=== PATIENT | male | born 1960 | race African-American/Black ===

== ENCOUNTER 2017-09-26 10:06 | Observation (INO) ==
[2017-09-26] MEDS ORDERED: METOPROLOL 5mg/5ml INJECTION IVP ONE (10:20)
[2017-09-26] MEDS ORDERED: ASPIRIN 81 MG CHEWABLE TABLET PO ONE (10:20)
[2017-09-26] MEDS: NITROGLYCERIN 0.4 MG SUBLINGUAL TABLET SL PRN ×3 (10:28→10:44)
--- NOTE | 2017-09-26 10:31 | Emergency Department Report ---
Chest Pain HPI - General Chief Complaint: Chest Pain <Karrie Trejo 09/26/17 10:34> Stated Complaint: HIGH BP, HEADACHE <Karrie Trejo 09/26/17 10:34> Source: patient <Karrie Trejo 09/26/17 10:34> Mode of arrival: EMS <Karrie Trejo 09/26/17 10:34> Limitations: no limitations <Karrie Trejo 09/26/17 10:34> - History of Present Illness HPI narrative: PT presents per EMS from [facility] with a complaint of chest pain, SOA, HTN, and headache. Pt has had intermittent chest pain for about a week. Which started just before he went to [facility] to detox from cocaine. He was in detox for three days and is now at [facility] where he states he woke with a headache, took his medication, and had an episode of nausea and vomiting. Headache continues. He rates chest pain as 7/10 and is having SOA. He denies cough, fever, pain radiation or diaphoresis. He has a history of CAD, CKD, asthma, and cocaine abuse. He sees Dr Foote. He has been unable to have a heart cath 2/2 kidney function. Pt also states he has not been putting out much urine <Karrie Trejo 09/26/17 10:34> MD complaint: chest pain <Karrie Trejo 09/26/17 10:34> Onset (ago): day(s) <Karrie Trejo 09/26/17 10:34> Duration: intermittent <Karrie Trejo 09/26/17 10:34> Onset: awoke with symptoms <Karrie Trejo 09/26/17 10:34> Pain location: substernal <Karrie Trejo 09/26/17 10:34> Severity: moderate <Karrie Trejo 09/26/17 10:34> Severity scale (1-10): 7 <Karrie Trejo 09/26/17 10:34> Pain radiation: none <Karrie Trejo 09/26/17 10:34> - Related Data Home Medications Medication Instructions Recorded Confirmed Atorvastatin Calcium 80 mg PO HS #0 tab 11/25/15 09/26/17 Clopidogrel Bisulfate [Clopidogrel] 75 mg PO DAILY #0 tab 11/25/15 09/26/17 Albuterol Sulfate [Proair Hfa] 1 puff INH Q6H PRN 09/26/17 09/26/17 Amlodipine [Norvasc] 10 mg PO DAILY 09/26/17 09/26/17 Isosorbide Mononitrate ER [Imdur] 60 mg PO DAILY 09/26/17 09/26/17 Torsemide [Demadex] 20 mg PO DAILY 09/26/17 09/26/17 <Karrie Trejo 09/26/17 10:34> Allergies Allergy/AdvReac Type Severity Reaction Status Date / Time No Known Allergies Allergy Unverified 11/24/15 23:29 <Karrie Trejo 09/26/17 10:34> Review of Systems All systems: reviewed and negative except as stated <Karrie Trejo 10:34> Constitutional: Reports: as per HPI <Karrie Trejo 09/26/17 10:34> Cardiovascular: Reports: as per HPI <Karrie Trejo 09/26/17 10:34> Respiratory: Reports: as per HPI <Karrie Trejo 09/26/17 10:34> Gastrointestinal: Reports: as per HPI <Karrie Trejo 09/26/17 10:34> Neurological: Reports: as per HPI <Karrie Trejo 09/26/17 10:34> [facility] Patient Stated Medical History Cerebrovascular Accident Yes Dental Problems Yes Congestive Heart Failure Yes Coronary Artery Disease Yes Hypertension Yes Hx Renal Disease Yes Substance Use Disorder Yes: Cocaine <Winston Bradley - 09/26/17 13:38> Physical Exam - Limitations Limitations: no limitations <Karrie Trejo 09/26/17 10:34> - General General appearance: alert, anxious <Karrie Trejo 09/26/17 10:34> - Normal Exams: Head:: Normocephalic without trauma <Karrie Trejo 09/26/17 10:34> Eyes:: Pupils are PERRLA w/ EOMI <Karrie Trejo 09/26/17 10:34> Neck:: Full range of motion <Karrie Trejo 09/26/17 10:34> Chest/Respirations:: Clear all teixeira, with good airflow, and symmetry bilaterally <Karrie Trejo 09/26/17 10:34> Cardiovascular:: Regular rate and rhythm, without murmur or gallop, Pulses 2+ all extremities, capillary refill, <2 seconds all extremities <Karrie Trejo 09/26/17 10:34> Abdomen:: Bowel sounds positive, soft, non-tender, non-distended <Karrie Trejo 09/26/17 10:34> Musculoskeletal:: No tenderness, or deformity noted, good range of motion, all extremities <Karrie Trejo 09/26/17 10:34> Integumentary:: No rashes <Karrie Trejo 09/26/17 10:34> Neurological:: Patient is alert, and oriented, cranial nerves, motor/sensory/ cerebellar, exams w/o gross deficits, to observation <Karrie Trejo 10:34> Psychiatric:: Patient exhibits, appropriate attention, emotion and affect < Karrie Trejo 09/26/17 10:34> Course Vital Signs Temperature 97.6 F 09/26/17 10:06 Pulse Rate 78 09/26/17 10:06 Respiratory Rate 20 09/26/17 10:06 Blood Pressure 177/105 H 09/26/17 10:06 Pulse Oximetry 97 09/26/17 10:06 Temperature 97.6 F 09/26/17 10:10 Pulse Rate 58 L 09/26/17 12:15 Respiratory Rate 22 09/26/17 12:15 Blood Pressure 138/85 09/26/17 11:15 Pulse Oximetry 99 09/26/17 12:15 <Winston Bradley - 09/26/17 13:37> Vital Signs Blood Pressure 177/105 H 09/26/17 10:08 Temperature 97.6 F 09/26/17 10:10 Pulse Rate 78 09/26/17 10:10 Respiratory Rate 20 09/26/17 10:10 Blood Pressure 177/105 H 09/26/17 10:08 Pulse Oximetry 97 09/26/17 10:10 <Karrie Trejo Gerson - 09/26/17 10:34> Chest Pain - MDM Narrative Medical decision making narrative: PT reports some improvement in CP after NTG however even though improved BP remains elevated and headache continues. Pt given Tylenol for headache CT head performed wit no acute findings Dr Langley aware of pt complaint and findings. He would like hospitalist notified 2/2 comorbidities and to determine if pt needs transfer Dr Oliveira notified and will admit. All findings and plan discussed with pt who voices understanding <Karrie Trejo Berny 09/26/17 14:28> - Differential Diagnosis Likely: stable angina, unstable angina pectoris, atypical chest pain, st elevation myocardial infarction, costochondritis, chest pain (asthma exacerbation, hypertensive urgency, CKD) <Karrie Trejo Berny 09/26/17 10:34> - Lab Data Attestation: I reviewed the patient's lab results. <NeilNavaKarrietin Arrieta 09/26 14:28> Result diagrams: 09/26/17 10:15 09/26/17 10:15 <NeilKarrietin Arrieta 09/26/17 10:34> Lab Results 09/26/17 09/26/17 09/26/17 Range/Units 10:15 10:15 10:30 WBC 5.6 (4.5-11.0) T/MM3 RBC 5.80 (4.50-5.90) M/MM3 Hgb 15.5 (13.5-17.5) GM/DL Hct 46.5 (41-53) % MCV 80.2 (80-100) UM3 MCH 26.7 (26-34) UUG MCHC 33.3 (31-37) GM/DL RDW Std Deviation 50.1 (36.9-50.2) FL Plt Count 207 (130-400) T/MM3 MPV 11.9 (9.4-12.4) UM3 Immature Gran % (Auto) 0.5 (0.0-0.5) % Neut % (Auto) 48.7 (33-66) % Lymph % (Auto) 39.5 (23-45) % Surry % (Auto) 6.8 (0-9.0) % Eos % (Auto) 4.3 H (0-4) % Baso % (Auto) 0.2 (0-2) % Neut # (Auto) 2.7 (1.8-7.7) T/MM3 Lymph # (Auto) 2.2 (1-4.8) T/MM3 [place]ry # (Auto) 0.4 (0-0.8) T/MM3 Eos # (Auto) 0.2 (0-0.5) T/MM3 Baso # (Auto) 0.0 (0-0.2) T/MM3 Abs Immat Gran (auto) 0.03 (0.00-0.03) T/MM3 D-Dimer (0-230) NG/ML Turbidity < 20 (0-20) Sodium 144 (136-146) MEQ/L Potassium 4.8 (3.6-5) MEQ/L Chloride 102 (98-107) MEQ/L Carbon Dioxide 28 (22-30) MEQ/L Anion Gap 14 (5-15) meq/L BUN 40.0 H (9-20) MG/DL Creatinine 3.6 H (0.8-1.5) mg/dL GFR Calculation 18 BUN/Creatinine Ratio 11 (6-26) RATIO Glucose 129 H (75-110) MG/DL Calculated Osmolality 289 H (261-280) MOSM/KG Calcium 10.0 (8.4-10.2) MG/DL Icterus Index < 2 (0-7) Troponin I 0.022 (0-0.12) ng/ml NT-Pro-B Natriuret Pep 189 H (0-175) pg/mL Specimen Hemolysis 21 (0-25) Ur Collection Type Urine Color (YELLOW) Urine Clarity Urine pH (5.0-8.0) Ur Specific Colman (1.015-1.025) Urine Protein (NEGATIVE) Urine Glucose (UA) (NEGATIVE) Urine Ketones (NEGATIVE) Urine Occult Blood (NEGATIVE) Urine Nitrate (NEGATIVE) Urine Bilirubin (NEGATIVE) Urine Urobilinogen (NORMAL) EU/DL Ur Leukocyte Esterase (NEGATIVE) Urine RBC (0-3) /HPF Urine WBC (0-5) /HPF Ur Squamous Epith Cells Urine Bacteria (NEGATIVE) Hyaline Casts /LPF Ur Culture Indicated? Specimen Comment Lab to recollect Tests Not Done Ddimer Reason Tests Not Done Clotted specimen 09/26/17 09/26/17 Range/Units 10:43 11:08 WBC (4.5-11.0) T/MM3 RBC (4.50-5.90) M/MM3 Hgb (13.5-17.5) GM/DL Hct (41-53) % MCV (80-100) UM3 MCH (26-34) UUG MCHC (31-37) GM/DL RDW Std Deviation (36.9-50.2) FL Plt Count (130-400) T/MM3 MPV (9.4-12.4) UM3 Immature Gran % (Auto) (0.0-0.5) % Neut % (Auto) (33-66) % Lymph % (Auto) (23-45) % Surry % (Auto) (0-9.0) % Eos % (Auto) (0-4) % Baso % (Auto) (0-2) % Neut # (Auto) (1.8-7.7) T/MM3 Lymph # (Auto) (1-4.8) T/MM3 Surry # (Auto) (0-0.8) T/MM3 Eos # (Auto) (0-0.5) T/MM3 Baso # (Auto) (0-0.2) T/MM3 Abs Immat Gran (auto) (0.00-0.03) T/MM3 D-Dimer < 150 (0-230) NG/ML Turbidity (0-20) Sodium (136-146) MEQ/L Potassium (3.6-5) MEQ/L Chloride (98-107) MEQ/L Carbon Dioxide (22-30) MEQ/L Anion Gap (5-15) meq/L BUN (9-20) MG/DL Creatinine (0.8-1.5) mg/dL GFR Calculation BUN/Creatinine Ratio (6-26) RATIO Glucose (75-110) MG/DL Calculated Osmolality (261-280) MOSM/KG Calcium (8.4-10.2) MG/DL Icterus Index (0-7) Troponin I (0-0.12) ng/ml NT-Pro-B Natriuret Pep (0-175) pg/mL Specimen Hemolysis (0-25) Ur Collection Type Urine, void-cc/notcc Urine Color Yellow (YELLOW) Urine Clarity Clear Urine pH 5.5 (5.0-8.0) Ur Specific Colman 1.010 L (1.015-1.025) Urine Protein 1+ A (NEGATIVE) Urine Glucose (UA) Negative (NEGATIVE) Urine Ketones Negative (NEGATIVE) Urine Occult Blood Trace-lysed (NEGATIVE) Urine Nitrate Negative (NEGATIVE) Urine Bilirubin Negative (NEGATIVE) Urine Urobilinogen 0.2 (NORMAL) EU/DL Ur Leukocyte Esterase Negative (NEGATIVE) Urine RBC 0-1 (0-3) /HPF Urine WBC None seen (0-5) /HPF Ur Squamous Epith Cells None seen Urine Bacteria None seen (NEGATIVE) Hyaline Casts 0-1 /LPF Ur Culture Indicated? Cult not indicated Specimen Comment Tests Not Done Reason Tests Not Done <Winston Bradley 09/26/17 13:38> - Radiology Data Attestation: I reviewed the patient's radiology results. <Karrie Trejo 09/26/17 14:28> - EKG Data EKG #1 EKG attestation: Yes: I reviewed and interpreted this EKG. <Karrie Trejo 09/26/17 14:28> EKG results narrative: Sinus rhythm. 83 bpm. No STEMI. No change from 2016. <Winston Bradley 09/26/17 13:38> Disposition Clinical Impression: Chest pain Qualifiers: Chest pain type: unspecified Qualified Code(s): R07.9 - Chest pain, unspecified Headache Qualifiers: Headache type: unspecified Headache chronicity pattern: acute headache Intractability: not intractable Qualified Code(s): R51 - Headache <Karrie Trejo 09/26/17 14:28> Disposition: 02 To [facility] [place] <Karrie Trejo 09/26/17 14:28> Condition: Stable <Karrie Trejo 09/26/17 14:28> Prescriptions: No Action Clopidogrel Bisulfate [Clopidogrel] 75 mg PO DAILY #0 tab Amlodipine [Norvasc] 10 mg PO DAILY Isosorbide Mononitrate ER [Imdur] 60 mg PO DAILY Torsemide [Demadex] 20 mg PO DAILY Atorvastatin Calcium 80 mg PO HS #0 tab Albuterol Sulfate [Proair Hfa] 1 puff INH Q6H PRN PRN Reason: Shortness Of Air/Wheezing <Karrie rTejo 09/26/17 10: 34> Time of Disposition: 14:28 <Karrie Trejo 09/26/17 14:28> - Seen By: midlevel <Karrie Trejo 09/26/17 14:28>
--- NOTE | 2017-09-26 10:32 | XRay Report ---
Indication: CHEST PAIN starting this morning PROCEDURE: XR chest 1V: Encounter: Initial Comparison: November 24, 2015 FINDINGS: The lungs are clear. There is no abnormal airspace opacity, pleural effusion or pneumothorax identified. The heart size, pulmonary vasculature and mediastinum are within normal limits. Mild dextroscoliosis IMPRESSION: No acute cardiopulmonary abnormality. .
[2017-09-26] MEDS: SALINE FLUSH 10ml SYRINGE IVF PRN (10:47)
[2017-09-26] MEDS: ACETAMINOPHEN 500 MG TABLET PO PRN ×2 (11:12→19:51)
[2017-09-26] MEDS ORDERED: PROMETHAZINE 25 MG INJECTION IVP ONE (13:51)
[2017-09-26] MEDS ORDERED: METOCLOPRAMIDE 10mg/2ml INJECTION IVP PRN (14:32)
[2017-09-26] MEDS ORDERED: ACETAMINOPHEN 325 MG TABLET PO PRN (14:32)
[2017-09-26] MEDS ORDERED: NITROGLYCERIN 0.4 MG SUBLINGUAL TABLET SL PRN (14:32)
[2017-09-26 14:33] VITALS: BMI 21.5
--- NOTE | 2017-09-26 14:43 | History & Physical Report ---
History of Present Illness Date: 09/27/17 Chief complaint: Chest Pain HPI: Is a 57-year-old male who is transferred over from the [facility] drug rehab facility for central sternal chest pain that has been on again off again since . He is not associated nausea with vomiting with this. He purports that he is been clean for the last week having spent 3 days in acute detox and an additional 4 at the [facility] facility since . He is actually more concerned about the occipital headache he is having is only slightly improved in the emergency room with the Tylenol that he's been given. He arrives with a form addressing his residency in the substance abuse disorder program at [facility] with the phone numbers [phone] as well as the fax [phone]. Review of Systems - Constitutional Constitutional: Present: as per HPI, headache(s) - EENMT Eyes: Absent: blurry vision, change in vision Mouth/Throat: Absent: pain - Cardiovascular Cardiovascular: Present: chest pain, dyspnea on exertion. Absent: palpitations , syncope, edema - Respiratory Respiratory: Absent: cough, dyspnea, pain on inspiration - Gastrointestinal Gastrointestinal: Present: nausea, vomiting - Neurological Neurological: Absent: abnormal movements, abnormal speech, focal weakness, numbness Past Medical History Medical History: Medical History (Last Updated 09/26/17 @ 14:47 by Andres Hart MD) CHF (congestive heart failure) CVA (cerebral vascular accident) Coronary artery disease Renal disease Family History: History of renal failure and cardiac disease within the family Family History: As Above - Social History Smoking status: Former smoker Substance use type: crack/cocaine Alcohol intake frequency: does not drink Current occupational status: other Medications Home Medications Medication Instructions Recorded Confirmed Type Atorvastatin Calcium 80 mg PO HS #0 tab 11/25/15 09/26/17 History Clopidogrel Bisulfate [Clopidogrel] 75 mg PO DAILY #0 tab 11/25/15 09/26/17 History Albuterol Sulfate [Proair Hfa] 1 puff INH Q6H PRN 09/26/17 09/26/17 History Amlodipine [Norvasc] 10 mg PO DAILY 09/26/17 09/26/17 History Isosorbide Mononitrate ER [Imdur] 60 mg PO DAILY 09/26/17 09/26/17 History Torsemide [Demadex] 20 mg PO DAILY 09/26/17 09/26/17 History Allergies Allergy/AdvReac Type Severity Reaction Status Date / Time No Known Allergies Allergy Verified 09/26/17 14:38 Exam Vital Signs: Temperature 97.6 F 09/26/17 10:10 Pulse Rate 66 09/26/17 14:15 Respiratory Rate 16 09/26/17 14:15 Blood Pressure 138/85 09/26/17 11:15 Pulse Oximetry 96 09/26/17 13:35 Telemetry Rhythm: Sinus Rhythm Height/Weight/BMI: Height 5 ft 1 in Weight 51.8 kg Body Mass Index 21.5 Comments: No acute changes when compared to EKG of 2016, chronic very minimal increase in ST segment on V1-V3 - Constitutional Present: well nourished, well developed - Routine HEENT Exam Eye: Present: EOMI ENT: Present: mucous membranes moist, dentition normal - Routine Respiratory Exam Present: CTA bilaterally. Absent: wheezes - Routine Cardiovascular Exam Present: RRR. Absent: murmur - Routine Abdominal Exam Present: soft, normoactive bowel sounds, non distended. Absent: tenderness - Routine Extremities Exam Present: normal capillary refill - Routine Skin Exam Present: dry, warm - Routine Neurological Exam Present: alert, oriented X3, CN II-XII intact - Routine Psychiatric Exam Present: normal affect Results - Labs CBC & Chem 7: 09/26/17 10:15 09/26/17 10:15 Assessment and Plan (1) Chest pain Current visit: Yes Status: Acute (2) Chronic kidney disease, stage 4 (severe) Current visit: Yes Status: Chronic (3) Headache Current visit: Yes Status: Acute (4) Cocaine abuse with cocaine-induced disorder Current visit: Yes Status: Chronic (5) Cocaine dependence with withdrawal Current visit: Yes Status: Acute Assessment and Plan: Mr. Juarez is a 57-year-old man with recent history of cocaine abuse. He is given a urine sample and we're waiting the results of the urine drug screen. Generally the screen would indicate whether or not there is been used within the last 72 hours as it is quickly metabolized beyond detection. Dr. Viveros in cardiology has seen and recommended observation based on patient's history. His chest pain has not had a positive troponin but it has been intermittent. We'll run [place] troponins and EKGs. Patient will be maintained on aspirin and sublingual nitroglycerin as needed The patient's actual priorities his headache which is probably secondary to the hypertensive urgency that he was having. Blood pressure is improved but he is still having some pain. CT has been preliminarily read as negative as he has no focal deficits do not see any value in magnetic resonance imaging at this time. DISPOSITION: observation status ADDENDUM: is supplying additional information stating that he has only been admitted to detox since the . His urine sample did not make it down to be processed in the lab as yet but it is far more likely to be positive at this point. For several hours now patient has been unwilling to submit a urine sample for urine drug screen. He has talked to nursing staff about desire to be transferred but without medical cause. I've told the staff if he wishes to leave against medical advice to not deter him Resuscitation Status: Full Code - Physician Narrative Physician: other Narrative: Date: 09/26/17 Time: 1439 Hospital Course Summary Disclaimer: The visit summary below is not to be considered part of the above Progress Note.
[2017-09-26] MEDS ORDERED: ALBUTEROL 2.5mg/3ml (0.083%) NEB AEROSOL PRN (18:54)
[2017-09-26] MEDS ORDERED: ATORVASTATIN 40 MG TABLET PO SCH (21:00)
--- NOTE | 2017-09-27 07:00 | CT Scan Report ---
Indication: headache, HX CVA CT head/brain wo con: Comparison: None Technique: Nonenhanced axial imaging with brain and bone window evaluation and dose reduction imaging technology Findings: Patient showed no acute intracranial abnormality. No suggestion of hemorrhage, midline shift or mass is noted. Some soft tissue swelling is seen over the right for head. Questionable previous injury to the medial wall of the left orbit. Mastoid air cells are clear. No bony skull fractures are identified. Impression: 1. No acute intracranial findings. 2. Probable chronic findings about the medial wall of the left orbit 3. Findings communicated to the ordering ER clinician by the V rad service on a callback basis. .
[2017-09-27 07:52] VITALS: RESP 12; TEMP 98.1
[2017-09-27] MEDS ORDERED: ISOSORBIDE MONONITRATE ER 60 MG TABLET PO SCH (09:00)
[2017-09-27] MEDS ORDERED: CLOPIDOGREL 75 MG TABLET PO SCH (09:00)
[2017-09-27] MEDS ORDERED: ENOXAPARIN 40 MG/0.4 ML INJECTION SQ SCH (09:00)
[2017-09-27] MEDS ORDERED: AMLODIPINE 10 MG TABLET PO SCH (09:00)
[2017-09-27] MEDS ORDERED: TORSEMIDE 20 MG TABLET PO SCH (09:00)
[2017-09-27 10:18] VITALS: BP 120/65; PULSE 57; O2SAT 99
[2017-09-27] MEDS: SALINE FLUSH 10ml SYRINGE IVF PRN (10:20)
[2017-09-27] MEDS: ACETAMINOPHEN 500 MG TABLET PO PRN (10:27)
--- NOTE | 2017-09-27 10:37 | Discharge Summary ---
Discharge Information Date of admission: 09/26/17 14:01 Anticipated date of discharge: 09/27/17 Attending Physician: Andres Hart MD Primary care physician: Primary Care, You Choose - Discharge Diagnosis (1) Chest pain Status: Acute (2) Chronic kidney disease, stage 4 (severe) Status: Chronic (3) Headache Status: Acute (4) Cocaine abuse with cocaine-induced disorder Status: Chronic (5) Cocaine dependence with withdrawal Status: Acute - Laboratory Labs: 09/26/17 10:15 09/26/17 10:15 History of Present Illness HPI: Is a 57-year-old male who is transferred over from the [facility] drug rehab facility for central sternal chest pain that has been on again off again since . He is not associated nausea with vomiting with this. He purports that he is been clean for the last week having spent 3 days in acute detox and an additional 4 at the [facility] facility since . He is actually more concerned about the occipital headache he is having is only slightly improved in the emergency room with the Tylenol that he's been given. He arrives with a form addressing his residency in the substance abuse disorder program at [facility] with the phone numbers [phone] as well as the fax [phone]. Objective Vital signs: Temperature 98.1 F 09/27/17 07:52 Pulse Rate 57 L 09/27/17 10:17 Respiratory Rate 12 09/27/17 07:52 Blood Pressure 120/65 09/27/17 10:17 Pulse Oximetry 99 09/27/17 10:17 Rhythm: Normal Sinus Rhythm Height/Weight/BMI: Height 5 ft 1 in Weight 53.3 kg Body Mass Index 21.5 - Constitutional Present: well nourished, well developed - Routine HEENT Exam Eye: Present: EOMI ENT: Present: mucous membranes moist, dentition normal - Routine Respiratory Exam Present: CTA bilaterally. Absent: wheezes - Routine Cardiovascular Exam Present: RRR. Absent: murmur - Routine Abdominal Exam Present: soft, normoactive bowel sounds, non distended. Absent: tenderness - Routine Extremities Exam Present: normal capillary refill - Routine Skin Exam Present: dry, warm - Routine Neurological Exam Present: alert, oriented X3, CN II-XII intact - Routine Lymphatic Exam Lymphatic: Absent: adenopathy - Routine Psychiatric Exam Present: anxious. Absent: good insight, good judgment Hospital Course This is a general summary of the patient's hospital course. For more details refer to the complete medical record. Hospital course: This is a 57-year-old man who had been sent over from [facility] substance rehabilitation program for chest pain that had been going on for approximately 72 hours off and on. The patient had been seen by ruby [employer] rails software developer Dr. Kent and he had recommended the patient be put under observation to rule out acute coronary syndrome based upon the patient's past history of coronary artery disease and cocaine abuse. (Patient has previously been seen by Dr. Foote) patient received serial troponins and cardiac enzymes which were all negative. The patient stated that he had been clean of cocaine for one weeks time when he had been initially admitted, however the drug toxicity that followed showed him to be positive which would indicate use within 72 hours, and his admitted that his last use had been on September 22 prior to going into the program at [facility]. His chief complaint remains his headache however the patient is still withdrawing from cocaine. His CT was negative and he never showed any signs of focal deficits. As he is in a drug rehab program, he was accompanied by a letter from the program requesting abstinence from abusive drugs, this would include opiates and barbiturates in treatment of the headache. He was given Phenergan, fluid boluses and Tylenol which had some minimal temporary improvement. The patient's renal function is too poor to be using NSAIDs so injections such as Toradol or medications such as meloxicam were avoided. He is to go back to his drug rehab program to continue cleaning up Time spent with patient: 25 - 35 minutes Discharge Plan - Discharge Disposition Discharge Date: 09/27/17 Disposition: [address] [facility] Home/Facility *Condition: Stable Reason For Visit (Visit label in EMR): chest pain r/o ACS - Discharge Medications *Discharge Medications: Continue Clopidogrel Bisulfate [Clopidogrel] 75 mg PO DAILY #0 tab Amlodipine [Norvasc] 10 mg PO DAILY Isosorbide Mononitrate ER [Imdur] 60 mg PO DAILY Torsemide [Demadex] 20 mg PO DAILY Atorvastatin Calcium 80 mg PO HS #0 tab Albuterol Sulfate [Proair Hfa] 1 puff INH Q6H PRN PRN Reason: Shortness Of Air/Wheezing - Discharge Packet/Instructions *Diet: Low-sodium on the limited to 2 g daily *Activity: Return to [facility] for further drug rehab *Pain Management/Treatment: [id number] Tylenol not to exceed the dosage and aspirin is needed. Avoid ibuprofen, Motrin, naproxen, Aleve and other NSAIDs - Referrals/Follow Up - Patient Handouts - Dismissal Complete Discharge Instructions are:: Complete Physician Narrative - Narrative Physician: other Attestation Narrative: Date: 09/27/17 Time: 2185
[2017-09-27] MEDS ORDERED: ASPIRIN 325 MG TABLET PO ONE (10:44)
--- NOTE | 2017-09-27 15:46 | Echocardiogram ---
DATE OF PROCEDURE 09/26/2017 PROCEDURE PERFORMED Transthoracic echocardiography with M-mode, full color spectral Doppler assessment SUMMARY OF FINDINGS 1. LEFT VENTRICLE. Left ventricle appears normal in size. There is moderate to severe concentric left ventricular hypertrophy noted. There is speckled pattern noted on some images suspicious of amyloid disease. Overall left ventricular systolic function is normal. Estimated left ventricular ejection fraction is 60-65%. 2. RIGHT VENTRICLE. Right ventricle appears normal in size. Normal right ventricular wall thickness noted. Right ventricle systolic function is normal. 3. INTERATRIAL SEPTUM. This appears intact by color flow Doppler. No obvious atrioseptal defect noted. 4. LEFT ATRIUM. The left atrium appears mildly enlarged. 5. RIGHT ATRIUM. Right atrium appears mildly dilated. 6. MITRAL VALVE. Mitral valve appears normal in structure. There is mild mitral regurgitation noted. 7. TRICUSPID VALVE. Tricuspid valve appears normal in structure. Mild tricuspid regurgitation noted. 8. AORTIC VALVE. Aortic valve appears normal in structure. It is trileaflet. There is no aortic stenosis or aortic regurgitation noted. 9. PULMONIC VALVE. Pulmonic valve appears normal structurally, only trial pulmonic regurgitation noted. 10. INFERIOR VENA CAVA. Inferior vena cava is collapsed suggestive of normal right atrial pressure. CONCLUSIONS 1. Normal left ventricular systolic function with moderate concentric hypertrophy, estimated left ventricular ejection fraction 60-65%. 2. Normal right ventricular systolic function. 3. Mild mitral regurgitation noted. 4. Mild tricuspid regurgitation noted. MTDD
== END 2017-09-27 12:32 ==
LOC: EDHOLD 10:06 → ED 10:06 → MED 14:30
PROVIDERS: ADMIT Family Medicine; ATTEND Family Medicine